=== PATIENT | male | born 1980 | race Hispanic/Latino ===

== ENCOUNTER → 2022-12-10 | Day surgery (SDC) | payer OTHER ==
[~2022-12-10] MED LIST: CRESTOR10 MG PO; FENTANYL CITRATE/PF 100MCG/2 ML INJ ONE; LACTATED RINGER'S 1,000 ML ONE; MECLIZINE HCL12.5 MG PO; OMEPRAZOLE40 MG PO; ONDANSETRON ODT4 MG PO; PAXLOVID 300-11 EACH PO; PROPOFOL IV EMULSION 10 MG/ML 20 ML VIAL ONE; SERTRALINE HCL100 MG PO; SUCRALFATE1 GM PO
[2022-12-10 15:15] VITALS: BP 113/85; PULSE 76; RESP 17; O2SAT 100
== END | disposition home or self-care (01) ==
LOC: OR 12:44
PROVIDERS: ATTEND Internal Medicine Gastroenterology
DX: K21.00 Gastro-esophageal reflux disease with esophagitis, without bleeding (principal); K29.00 Acute gastritis without bleeding; K29.50 Unspecified chronic gastritis without bleeding; B96.81 Helicobacter pylori [H. pylori] as the cause of diseases classified elsewhere; K31.89 Other diseases of stomach and duodenum; E78.5 Hyperlipidemia, unspecified; F32.A Depression, unspecified; Z01.810 Encounter for preprocedural cardiovascular examination; Z79.899 Other long term (current) drug therapy
CPT/HCPCS: 43239; 93005; C9113; J2704; J3010; J7121